=== PATIENT | female | born 1945 | race African-American/Black ===

== ENCOUNTER → 2016-04-11 | Outpatient (CLI) | payer MEDICARE, OTHER ==
[2015-09-07 14:53] VITALS: BP 127/80
[~2016-04-11] MED LIST: ALLO100T PO; ALPR0.5T6 PO; DIPH50CA PO; LEVO150T PO; LEVO175T2 PO; METH4TAB2 PO; METO100T2 PO; METO50TA2 PO; MONT10TA6 PO; POTA20TA12 PO; SIMV40TA3 PO; TEMA30CA6 PO; VALS1TAB22 PO
[2016-04-11 16:44] LABS: ALBUMIN 3.8 g/dL (3.4-5.0); ALBUMIN/GLOBULIN RATIO 1.2 (1.0-1.7); CALCIUM 9.2 mg/dL (8.5-10.1); CREATININE 1.3 mg/dL (0.6-1.0); GFR 49.3; POTASSIUM 3.8 mmol/L (3.5-5.1); TOTAL BILIRUBIN 0.3 mg/dL (0.2-1.0); TOTAL PROTEIN 7.1 g/dL (6.4-8.2)
== END | disposition home or self-care (01) ==
LOC: LAB 16:05
PROVIDERS: ATTEND Nurse Practitioner Family
DX: R53.83 Other fatigue (principal)
CPT/HCPCS: 36415; 80053

== ENCOUNTER → 2016-05-07 | Outpatient (CLI) | payer MEDICARE, OTHER ==
[2015-09-07 14:53] VITALS: BP 127/80
--- NOTE | 2016-05-07 11:09 | KCIC ---
EXAM: Carotid Doppler sonogram. INDICATION: Transient ischemic attack. COMPARISON: None. TECHNIQUE: Osborn scale and color doppler sonographic imaging of the neck with spectal waveform analysis was performed. FINDINGS: Peak systolic velocities are in cm/s. Right: ICA: 48 CCA: 56 ICA/CCA Ratio: Less than 1.0. Left: ICA: 54 CCA: 56 ICA/CCA Ratio: Less than 1.0. There is normal antegrade flow within the vertebral arteries. IMPRESSION: No Doppler evidence of hemodynamically significant stenosis within the carotid or vertebral arteries. PQRS Statement: NASCET criteria were utilized for this exam. Electronically signed by: Ciara Rodríguez (May 07, 2016 11:07:40)
== END | disposition home or self-care (01) ==
LOC: KCIC US 10:00
PROVIDERS: ATTEND Family Medicine
DX: G45.9 Transient cerebral ischemic attack, unspecified (principal)
CPT/HCPCS: 93880

== ENCOUNTER → 2017-04-02 | Outpatient (CLI) | payer MEDICARE ==
[2016-12-17 15:00] VITALS: BP 108/67
[~2017-04-02] MED LIST changes: +CYAN10005 PO; +ESCITALOPRAM OXA5 MG PO; +GABA-585 PO; -METO100T2 PO; +METO100T7 PO; -METO50TA2 PO; +METO50TA6 PO; +OMEG1CAP38 PO; +POTA20TA82 PO
--- NOTE | 2017-04-02 11:47 | RAD ---
DATE: April 02, 2017 EXAM: DIGITAL SCREEN BILAT W/CAD HISTORY: Screening study. COMPARISON: 2014 and 2015 This study was interpreted with the benefit of Computerized Aided Detection (CAD). FINDINGS: The breast parenchyma is scattered and mildly dense. There are no dominant suspicious masses, suspicious microcalcifications or evidence of architectural distortion. IMPRESSION: No mammographic indicators for malignancy. BI-RADS CATEGORY: 1 NEGATIVE RECOMMENDED FOLLOW-UP: 12M 12 MONTH FOLLOW-UP PQRS compliance statement: Patient information was entered into a reminder system with a target due date April 03, 2018 for the next mammogram. Mammography is a sensitive method for finding small breast cancers, but it does not detect them all and is not a substitute for careful clinical examination. A negative mammogram does not negate a clinically suspicious finding and should not result in delay in biopsying a clinically suspicious abnormality. "Our facility is accredited by the [employer] Mammography [employer]." The patient's breast density may affect the ability of mammography to detect breast cancer. There are 4 categories of breast density, A, B, C and D. Breast density A means that most of the breast tissue is replaced with adipose tissue and therefore is not dense. Breast density B means that the breast tissue is mildly dense and scattered. Breast density C means that the breast tissue is heterogeneously dense. Breast density D means that the breast tissue is very dense. Breast densities especially C and D may decrease the sensitivity of mammography to detect breast cancer. Therefore, the patient may benefit from 3-D breast mammography (3D breast tomography) as a part of their screening mammogram. Insurance may or may not pay for this additional imaging. The patient's breast density based on today's mammogram is category B.
== END | disposition home or self-care (01) ==
LOC: MAMMO 09:02
PROVIDERS: ATTEND Internal Medicine Cardiovascular Disease
DX: Z12.31 Encounter for screening mammogram for malignant neoplasm of breast (principal)
CPT/HCPCS: G0202; 77067

== ENCOUNTER → 2017-08-08 | Outpatient (CLI) | payer MEDICARE ==
[2017-08-08 09:58] LABS: ADD MAN DIFF? NO
[2017-08-08 10:07] LABS: BASO # 0.1 x10^3/uL (0.0-0.2); BASO % 1 % (0-3); EOS # 0.3 x10^3/uL (0.0-0.7); EOS % 5 % (0-3); HEMOGLOBIN 14.1 g/dL (12.0-15.5); LYMPH # 2.6 x10^3/uL (1.0-4.8); LYMPH % 42 % (24-48); MEAN CORPUSCULAR HEMOGLOBIN 31 pg (25-35); MEAN CORPUSCULAR HGB CONC 34 g/dL (31-37); MEAN CORPUSCULAR VOLUME 92 fL (79-100); MONO # 0.8 x10^3/uL (0.0-1.1); MONO % 13 % (0-9); NEUT # 2.4 x10^3uL (1.8-7.7); NEUT % 39 % (31-73); PLATELET COUNT 272 x10^3/uL (140-400); RED BLOOD COUNT 4.58 x10^6/uL (3.50-5.40); RED CELL DISTRIBUTION WIDTH 13.4 % (11.5-14.5); WHITE BLOOD COUNT 6.2 x10^3/uL (4.0-11.0)
[2017-08-08 10:29] LABS: ALBUMIN 4.1 g/dL (3.4-5.0); ALK PHOS 74 U/L (46-116); ALT (SGPT) 32 U/L (14-59); ANION GAP 11 (6-14); AST (SGOT) 21 U/L (15-37); BLOOD UREA NITROGEN 28 mg/dL (7-20); BUN/CREATININE RATIO 18 (6-20); CALCIUM 9.9 mg/dL (8.5-10.1); CARBON DIOXIDE 28 mmol/L (21-32); CHLORIDE 101 mmol/L (98-107); CHOLESTEROL 241 mg/dL (0-200); CREATININE 1.6 mg/dL (0.6-1.0); GFR 38.7; GLUCOSE 106 mg/dL (70-99); HDLC 60 mg/dL (40-60); LDLC 147 mg/dL (0-100); NON-HDL CHOLESTEROL 181 mg/dL (0-129); POTASSIUM 4.5 mmol/L (3.5-5.1); SODIUM 140 mmol/L (136-145); TOTAL BILIRUBIN 0.4 mg/dL (0.2-1.0); TOTAL PROTEIN 8.2 g/dL (6.4-8.2); TRIGLYCERIDES 170 mg/dL (0-150); VLDLC 34 mg/dL (0-40)
[2017-08-08 10:38] LABS: FREE T4 1.13 ng/dL (0.76-1.46)
[2017-08-08 10:38] LABS: THYROID STIM HORMONE (TSH) 0.598 uIU/mL (0.358-3.74)
[2017-08-08 23:12] LABS: HEMOGLOBIN A1C 5.7 % (4.8-5.6)
== END | disposition home or self-care (01) ==
LOC: LAB 09:22
DX: D69.3 Immune thrombocytopenic purpura (principal); E03.9 Hypothyroidism, unspecified; R53.83 Other fatigue; R79.89 Other specified abnormal findings of blood chemistry
CPT/HCPCS: 36415; 80053; 80061; 83036; 84439; 84443; 84481; 85025

== ENCOUNTER → 2018-04-03 | Outpatient (CLI) | payer MEDICARE ==
[2016-12-17 15:00] VITALS: BP 108/67
--- NOTE | 2018-04-03 09:16 | RAD ---
DATE: 04/03/2018 EXAM: MAMMO GUANACO SCREENING BILATERAL HISTORY: Routine screening COMPARISON: 04/02/2017 This study was interpreted with the benefit of Computerized Aided Detection (CAD). Breast Density: SCATTERED The breast parenchyma shows scattered fibroglandular densities. Breast parenchyma level B. FINDINGS: 2-D and 3-D tomosynthesis imaging was performed in CC and MLO projections. No new or enlarging breast densities are seen. No suspicious microcalcifications are evident. IMPRESSION: Stable mammograms without evidence of malignancy. BI-RADS CATEGORY: 1 NEGATIVE RECOMMENDED FOLLOW-UP: 12M 12 MONTH FOLLOW-UP PQRS compliance statement: Patient information was entered into a reminder system with a target due date for the next mammogram. Mammography is a sensitive method for finding small breast cancers, but it does not detect them all and is not a substitute for careful clinical examination. A negative mammogram does not negate a clinically suspicious finding and should not result in delay in biopsying a clinically suspicious abnormality. "Our facility is accredited by the [employer] Mammography [employer]."
== END | disposition home or self-care (01) ==
LOC: MAMMO 07:50
PROVIDERS: ATTEND Family Medicine
DX: Z12.31 Encounter for screening mammogram for malignant neoplasm of breast (principal)
CPT/HCPCS: 77063; 77067

== ENCOUNTER → 2019-04-06 | Outpatient (CLI) | payer MEDICARE ==
[2016-12-17 15:00] VITALS: BP 108/67
[~2019-04-06] MED LIST changes: +CYAN-25 PO; -CYAN10005 PO; +MONT10TA49 PO; -MONT10TA6 PO; +POTA20TA4 PO; -POTA20TA82 PO; +SIMV40TA18 PO; -SIMV40TA3 PO
--- NOTE | 2019-04-07 16:15 | RAD ---
DATE: 04/06/2019 EXAM: MAMMO GUANACO SCREENING BILATERAL HISTORY: Routine screening COMPARISON: 03/25/2014, 03/28/2015, 03/29/2016, 04/02/2017, 04/03/2018 mammographic exams This study was interpreted with the benefit of Computerized Aided Detection (CAD). Breast Density: SCATTERED The breast parenchyma shows scattered fibroglandular densities. Breast parenchyma level B. FINDINGS: Asymmetry involving the right upper breast is evident on MLO tomosynthesis images approximately 2.9 cm from the nipple. This finding is new compared to prior exams. It is not well delineated on the standard mammographic imaging. Benign-appearing axillary lymph nodes are present. No suspicious calcifications. IMPRESSION: Right upper midline breast asymmetry. BI-RADS CATEGORY: 0 INCOMPLETE: NEEDS ADDITIONAL IMAGING EVALUATION AND/OR PRIOR MAMMOGRAMS FOR COMPARISON. RECOMMENDED FOLLOW-UP: ADD ADDITIONAL IMAGING. Spot compression imaging of the right upper MLO view with tomosynthesis is recommended. Ultrasound may be needed. PQRS compliance statement: Patient information was entered into a reminder system with a target due date for the next mammogram. Mammography is a sensitive method for finding small breast cancers, but it does not detect them all and is not a substitute for careful clinical examination. A negative mammogram does not negate a clinically suspicious finding and should not result in delay in biopsying a clinically suspicious abnormality. "Our facility is accredited by the [employer] Mammography [employer]."
== END | disposition home or self-care (01) ==
LOC: MAMMO 14:01
PROVIDERS: ATTEND Family Medicine
DX: Z12.31 Encounter for screening mammogram for malignant neoplasm of breast (principal)
CPT/HCPCS: 77063; 77067